=== PATIENT | female | born 1980 | race Caucasian/White ===

== ENCOUNTER → 2020-01-30 | Outpatient (CLI) | payer OTHER ==
[~2020-01-30] MED LIST: FOLIC ACID 11 MG/TA1 PO; IRON325 MG PO
== END ==
LOC: MC.RAD 01-21 09:45
DX: Z12.31 Encounter for screening mammogram for malignant neoplasm of breast (principal); N63.10 Unspecified lump in the right breast, unspecified quadrant

== ENCOUNTER → 2020-02-05 | Outpatient (CLI) | payer OTHER | LOC: MC.RAD 07:34 | DX: N63.10 Unspecified lump in the right breast, unspecified quadrant (principal) ==

== ENCOUNTER → 2020-02-17 | Outpatient (CLI) | payer OTHER | LOC: MC.RAD 09:52 | DX: N63.10 Unspecified lump in the right breast, unspecified quadrant (principal); Z98.82 Breast implant status ==

== ENCOUNTER → 2021-02-04 | Outpatient (CLI) | payer OTHER | LOC: MC.RAD 07:44 | DX: Z12.31 Encounter for screening mammogram for malignant neoplasm of breast (principal) ==

== ENCOUNTER → 2023-03-28 | Outpatient (CLI) | payer OTHER | LOC: MC.RAD 09:22 | DX: Z12.31 Encounter for screening mammogram for malignant neoplasm of breast (principal) ==